=== PATIENT | female | born 2000 | race African-American/Black ===

== ENCOUNTER 2024-02-08 00:30 | Emergency (ER) | payer MEDICAID, OTHER ==
[~2024-02-08] VITALS: Ht 165.1 cm; Wt 60.0 kg
[~2024-02-08 00:30] MED LIST: MOTRIN
[2024-02-08 00:32] VITALS: O2SAT 99
[2024-02-08] MEDS: SODIUM CHLORIDE 0.9% 1,000 ML IV ONE (03:26)
[2024-02-08 03:54] LABS: *AMPHETAMINES SCREEN URINE NEGATIVE (NEGATIVE); *BARBITURATES SCREEN URINE NEGATIVE (NEGATIVE); *BENZODIAZEPINES SCREEN URINE NEGATIVE (NEGATIVE); *COCAINE SCREEN URINE NEGATIVE (NEGATIVE); CANNABINOID URINE SCREEN PRESUMPTIVE POSITIVE (NEGATIVE); ECSTASY MDMA SCREEN URINE NEGATIVE (NEGATIVE); METHADONE URINE SCREEN NEGATIVE (NEGATIVE); OPIATES URINE SCREEN NEGATIVE (NEGATIVE); PHENCYCLIDINE URINE SCREEN NEGATIVE (NEGATIVE)
[2024-02-08 04:14] LABS: BASOPHILS % 0.4 % (0.0-2.0); DIFFERENTIAL COMMENT 0; EOSINOPHILS % 1.2 % (0.0-5.0); HEMATOCRIT. 36.5 % (36.0-48.0); HEMOGLOBIN. 11.5 g/dL (12.0-16.0); LYMPHOCYTES % 58.3 % (20.0-50.0); MEAN CORPUSCULAR HEMOGLOBIN 23.1 pg (28.0-32.0); MEAN CORPUSCULAR HGB CONC 31.5 g/dL (31.0-37.0); MEAN CORPUSCULAR VOLUME 73.2 fL (81.0-99.0); MEAN PLATELET VOLUME 7.9 fl (7.4-10.4); MONOCYTES % 4.9 % (2.0-8.0); NEUTROPHILS % 35.2 % (40.0-76.0); PLATELET 351 x1000/uL (130-400); RED CELL DISTRIBUTION WIDTH 15.6 % (11.6-14.6); WHITE BLOOD COUNT 3.9 x1000/uL (4.5-11.0)
[2024-02-08 04:19] LABS: CHLORIDE 109 mEq/L (98-107); POTASSIUM 3.5 mEq/L (3.5-5.1); SODIUM 145 mEq/L (136-145)
[2024-02-08 04:20] LABS: CALCIUM 8.9 mg/dL (8.7-10.4); CARBON DIOXIDE 25 mEq/L (21-32)
[2024-02-08 04:25] LABS: CREATININE 0.8 mg/dL (0.6-1.0); ETHANOL BLOOD 137 mg/dL (<10); GLUCOSE 74 mg/dL (70-105); UREA NITROGEN BLOOD 6 mg/dL (9-23)
[2024-02-08 04:32] LABS: HCG SCREEN NEGATIVE
[2024-02-08 06:49] VITALS: BP 112/71; PULSE 59; RESP 16; TEMP 36.72516; O2SAT 100
== END 2024-02-08 06:51 | disposition home or self-care (01) ==
LOC: ER 00:39
DX: T51.0X1A Toxic effect of ethanol, accidental (unintentional), initial encounter (principal); Z98.890 Other specified postprocedural states; Y92.9 Unspecified place or not applicable
CPT/HCPCS: 80305; 80048; 80320; 84703; 85025; 36415; 96360; 99283; J7030; Z7610 ×2; G0480